=== PATIENT | female | born 1990 | race Caucasian/White ===

== ENCOUNTER → 2019-01-22 | Outpatient (CLI) | payer SELFPAY ==
--- NOTE | 2019-01-22 12:28 | PCVCIMAG ---
APPROVED REPORT Study performed: 01/22/2019 10:05:06 EXAM: Comprehensive 2D, Doppler, and color-flow Echocardiogram Patient Location: Echo lab Room #: 2Status: routine BSA: 1.98 HR: 71 bpmBP: 122/80 mmHg Rhythm: NSR Other Information Study Quality: Adequate Indications History of Tetralogy of Fallot, Pulmonic valve replaced 2007 Bovine valve 2D Dimensions IVSd: 6.55 (7-11mm)LVOT Diam: 23.85 (18-24mm) LVDd: 50.44 mm PWd: 8.13 (7-11mm) LVDs: 31.67 (25-40mm) Left Atrium: 29.12 (27-40mm) Aortic Root: 26.27 mm LV Single Plane 4CH: 44.72 % LV Single Plane 2CH: 63.64 % Biplane EF: 55.0 % Volumes Left Atrial Volume (Systole) Single Plane 4CH: 55.16 mLSingle Plane 2CH: 49.72 mL Biplane LA Volume: 53.00 mLLA ESV Index: 27.00 mL/m2 Aortic Valve AoV Peak Nate.: 1.13 m/s AO Peak Gr.: 5.12 mmHgLVOT Max P.77 mmHg LVOT Max V: 0.83 m/s KOLTON Vmax: 3.29 cm2 Mitral Valve E/A Ratio: 1.8 MV Decel. Time: 99.44 ms MV E Max Nate.: 0.92 m/s MV A Nate.: 0.50 m/s IVRT: 77.85 ms TDI E/Lateral E': 5.75E/Medial E': 11.50 Medial E' Nate.: 0.08 m/s Lateral E' Nate.: 0.16 m/s Pulmonary Valve PV Peak Nate.: 1.88 m/sPV Peak Gr.: 15.73 mmHg Pulmonary Vein P Vein S: 0.38 m/sP Vein A: 0.28 m/s P Vein D: 0.68 m/sP Vein A Dur.: 86.5 msec P Vein S/D Ratio: 0.56 Tricuspid Valve TV Vmax: 0.79 m/s Left Ventricle The left ventricle is normal size. There is normal LV segmental wall motion. There is normal left ventricular wall thickness. There is no ventricular septal defect visualized. Left ventricular systolic function is normal. The left ventricular ejection fraction is within the normal range. LVEF is 55%. The left ventricular diastolic function is normal. Right Ventricle The right ventricle is mildly enlarged. The right ventricular systolic function is normal. Atria The left atrium size is normal. The right atrium size is normal. Aortic Valve The aortic valve is not well visualized. No aortic regurgitation is present. There is no aortic valvular stenosis. Mitral Valve The mitral valve is normal in structure. There is no mitral valve regurgitation noted. No evidence of mitral valve stenosis. Tricuspid Valve The tricuspid valve is normal in structure. There is no tricuspid valve regurgitation noted. Pulmonic Valve A bovine prosthetic valve replaced by history, not well visualized. Mild regurgitation Mild pulmonic regurgitation. Great Vessels The aortic root is normal in size. Aortic arch is normal in caliber. IVC is normal in size and collapses >50% with inspiration. Pericardium There is no pericardial effusion. There is no pleural effusion. <Conclusion> Left ventricular systolic function is normal. There is no ventricular septal defect visualized. LVEF is 55%. The right ventricle is mildly enlarged. The aortic valve is not well visualized. No aortic regurgitation or stenosis The mitral valve is normal in structure. No mitral valve regurgitation A bovine prosthetic valve replaced by history, not well visualized. Mild regurgitation, no stenosis There is no pericardial effusion.
== END | disposition home or self-care (01) ==
LOC: PCVCIMAG 10:11
PROVIDERS: ATTEND Family Medicine
DX: Q21.3 Tetralogy of Fallot (principal); Z95.2 Presence of prosthetic heart valve
CPT/HCPCS: 93306